=== PATIENT | male | born 1940 | race Caucasian/White ===

== ENCOUNTER → 2019-12-17 | Outpatient (CLI) | payer MEDICARE, BC ==
[~2019-12-17] MED LIST: LEVO175T2 SL
== END | disposition home or self-care (01) ==
LOC: CFH 10:58
PROVIDERS: ATTEND Orthopaedic Surgery
DX: S92.061A Displaced intraarticular fracture of right calcaneus, initial encounter for closed fracture (principal); X58.XXXA Exposure to other specified factors, initial encounter; Y93.89 Activity, other specified; Y92.89 Other specified places as the place of occurrence of the external cause; Y99.8 Other external cause status

== ENCOUNTER 2019-12-18 13:03 | Day surgery (SDC) | payer MEDICARE, BC ==
[~2019-12-18] VITALS: Ht 180.3 cm; Wt 74.5 kg
[~2019-12-18 13:03] MED LIST changes: +CEFAZOLIN 1,000 MG ONE; +DEXAMETHASONE 4 MG/ML, 1ML ONE; +GLYCOPYRROLATE 0.2MG/1ML, 5ML ONE; -LEVO175T2 SL; +NEOSTIGMINE 1 MG/ML, 10ML ONE; +ONDANSETRON 2MG/ML, 2ML ONE; +PROPOFOL 10 MG/ML, 20ML ONE; +ROCURONIUM 10MG/ML,5ML ONE
[2019-12-18] MEDS ORDERED: CHLORHEXIDINE 15 ML UDC ONE (13:59)
[2019-12-18] MEDS ORDERED: CHLORHEXIDINE 15 ML UDC MM ONE (14:00)
[2019-12-18] MEDS ORDERED: PLEASE ENTER HEIGHT AND WEIGHT MC SCH (14:00)
[2019-12-18] MEDS ORDERED: PLEASE ENTER ALLERGIES MC SCH (14:00)
[2019-12-18] MEDS ORDERED: LACTATED RINGERS 1,000 ML IV SCH (14:00)
[2019-12-18 14:19] VITALS: BP 145/79
[2019-12-18] MEDS ORDERED: LEVO175T2 SL (14:27)
[2019-12-18] MEDS ORDERED: MIDAZOLAM 1 MG/ML, 2ML ONE (14:29)
[2019-12-18] MEDS ORDERED: FENTANYL PF 250 MCG/5ML ONE (14:29)
[2019-12-18] MEDS ORDERED: BUPIVACAINE/PF 0.5% ONE (14:56)
[2019-12-18] MEDS ORDERED: LIDOCAINE 1%, 20ML ONE (14:57)
== END 2019-12-18 19:00 | disposition home or self-care (01) ==
LOC: OUT 13:03
PROVIDERS: ATTEND Orthopaedic Surgery
DX: S92.061A Displaced intraarticular fracture of right calcaneus, initial encounter for closed fracture (principal); Z20.828 Contact with and (suspected) exposure to other viral communicable diseases; G89.18 Other acute postprocedural pain; Z79.899 Other long term (current) drug therapy; Z90.89 Acquired absence of other organs; W11.XXXA Fall on and from ladder, initial encounter; Y93.89 Activity, other specified; Y92.89 Other specified places as the place of occurrence of the external cause; Y99.8 Other external cause status
CPT/HCPCS: 28415; 64445; 73620; 87635; 93005; C1713; J0690; J1100; J2250; J2405; J2704; J2710; J3010; J7120; 76000